=== PATIENT | female | born 1965 | race African-American/Black ===

== ENCOUNTER 2024-05-12 09:37 | Emergency (ER) | payer MEDICAID ==
[~2024-05-12] VITALS: Ht 165.1 cm; Wt 60.0 kg
[~2024-05-12 09:37] MED LIST: aspirin; atorvastatin; glyburide; ibuprofen; lisinopril; metformin
[2024-05-12 09:39] VITALS: O2SAT 100
[2024-05-12 09:57] VITALS: BP 124/80; PULSE 91; RESP 16; TEMP 37; O2SAT 99
[2024-05-12 11:28] VITALS: TEMP 98.6
[2024-05-12] MEDS: DIPHENHYDRAMINE 25MG CAPSULE PO ONE (11:28)
[2024-05-12] MEDS: ACETAMINOPHEN 500MG TABLET PO ONE (11:28)
[2024-05-12] MEDS ORDERED: DIPH28.33 TP (11:39)
[2024-05-12] MEDS ORDERED: HYDR99LO TP (11:39)
[2024-05-12] MEDS ORDERED: DIPH25TA62 MT (11:39)
[2024-05-12] MEDS ORDERED: EPIN0.3P3 IM (11:40)
== END 2024-05-12 11:55 | disposition home or self-care (01) ==
LOC: ER 09:37
DX: T78.40XA Allergy, unspecified, initial encounter (principal); E11.9 Type 2 diabetes mellitus without complications; I10 Essential (primary) hypertension; Y92.89 Other specified places as the place of occurrence of the external cause
CPT/HCPCS: 99283; Q0163